=== PATIENT | female | born 1960 | race American Indian/Alaskan Native ===

== ENCOUNTER 2025-02-07 11:39 | Emergency (ER) | payer SELFPAY ==
[2025-02-07 12:10] VITALS: BP 124/65; PULSE 86; RESP 16; TEMP 98; BMI 20.9
[2025-02-07] MEDS ORDERED: ACETAMINOPHEN 500 MG TABLET (FP) ONE (12:45)
[2025-02-07] MEDS ORDERED: ALBUTEROL SO4 2.5/IPRATROPIUM 0.5 INH SOL 3 ML VIAL.NEB. NEB ONE (12:45)
[2025-02-07] MEDS: ACETAMINOPHEN 500 MG TABLET (FP) PO ONE (13:47)
[2025-02-07] MEDS: ALBUTEROL SO4 2.5/IPRATROPIUM 0.5 INH SOL 3 ML VIAL.NEB. NEB ONE (13:47)
[2025-02-07 13:52] LABS: ABSOLUTE IMMATURE GRANULOCYTES 0.05 x10^3/uL (0.0-0.031); BASOPHILS # 0.06 x10^3/uL (0.01-0.08); EOSINOPHIL % 1.3 % (0.7-5.8); EOSINOPHILS # 0.16 x10^3/uL (0.04-0.36); HEMATOCRIT 45.1 % (34.1-44.9); HEMOGLOBIN 14.5 g/dL (11.2-15.7); MCHC 32.2 g/dl (32.2-35.5); MEAN CELL VOLUME 83.2 fl (79.4-94.8); MEAN PLT VOLUME 9.9 fl (9.4-12.3); MONOCYTE # 0.74 x10^3/uL (0.24-0.86); MONOCYTE % 5.9 % (4.7-12.5); PLATELET COUNT 323 x10^3/uL (182-369); RDW 12.6 % (12.4-16.4)
[2025-02-07 14:27] LABS: POTASSIUM 5.2 mmol/L (3.5-5.1)
[2025-02-07 14:28] LABS: CALCIUM 10.1 mg/dL (8.5-10.1)
[2025-02-07 14:29] LABS: BLOOD UREA NITROGEN 17.6 mg/dL (7-18)
[2025-02-07 14:32] LABS: CREATININE 0.7 mg/dL (0.55-1.3)
[2025-02-07 14:34] LABS: BILIRUBIN,TOTAL 0.4 mg/dL (0.2-1); TOT PROT 7.4 g/dl (6.4-8.2)
[2025-02-07 15:16] LABS: ALBUMIN 3.8 g/dl (3.4-5.0)
[2025-02-07 15:23] LABS: EPI CELLS 26 /uL (0-25.1); HYALINE CASTS 2 /uL (0-3.1); URINE APPEARANCE CLEAR; URINE BACTERIA 34 /uL (0-1359); URINE BILIRUBIN NEGATIVE (NEGATIVE); URINE COLOR YELLOW; URINE GLUCOSE (UA) NEGATIVE (NEGATIVE); URINE KETONE NEGATIVE (NEGATIVE); URINE LEUK ESTERASE 2+ (NEGATIVE); URINE NITRITE NEGATIVE (NEGATIVE); URINE PROTEIN TRACE (NEGATIVE); URINE RBC 15 /uL (0-23.9); URINE UROBILINOGEN 0.2 mg/dL (0.2-1.0); URINE WBC 276 /uL (0-25.8)
[2025-02-07] MEDS ORDERED: ONDANSETRON 4 MG/2 ML VIAL ONE (15:37)
[2025-02-07] MEDS: ONDANSETRON 4 MG/2 ML VIAL IVPB ONE (15:43)
== END 2025-02-07 17:03 | disposition home or self-care (01) ==
LOC: JER 11:39
PROC: 3E033GC Introduction of Other Therapeutic Substance into Peripheral Vein, Percutaneous Approach (ICD-10-PCS; principal; 2025-02-07)
PROC: 3E0F7GC Introduction of Other Therapeutic Substance into Respiratory Tract, Via Natural or Artificial Opening (ICD-10-PCS; 2025-02-07)
DX: R19.7 Diarrhea, unspecified (principal); R10.11 Right upper quadrant pain; R10.13 Epigastric pain; R63.8 Other symptoms and signs concerning food and fluid intake; R11.0 Nausea; R07.9 Chest pain, unspecified; R05.9 Cough, unspecified; R09.3 Abnormal sputum; R30.0 Dysuria
CPT/HCPCS: 0241U-QW; 36415; 71046-TC-FY; 74177-TC; 80053; 81003; 83690; 84484; 85025; 87086; 93005; 93010; 99285-25